=== PATIENT | male | born 1935 | race Caucasian/White ===

== ENCOUNTER 2019-04-17 08:37 | Emergency (ER) | payer OTHER ==
[2019-04-17 08:57] LABS: Bilirubin Negative (Negative); Blood, Urine Moderate (Negative); Clarity Cloudy (Clear); Glucose, Urine (Dipstick) Negative (Negative); Leukocyte Small (Negative); Nitrite Positive (Negative); Protein, Urine (Dipstick) Negative (Neg-Trace); Urobilinogen 0.2 mg/dL (Less than 2)
[2019-04-17 09:11] LABS: Bacteria/HPF 2+ HPF (None Seen)
== END 2019-04-17 10:15 | disposition home or self-care (01) ==
LOC: SCSER 08:37
DX: N30.00 Acute cystitis without hematuria (principal); R33.9 Retention of urine, unspecified; I10 Essential (primary) hypertension; N40.0 Benign prostatic hyperplasia without lower urinary tract symptoms; Z79.82 Long term (current) use of aspirin; Z79.899 Other long term (current) drug therapy
CPT/HCPCS: 51702; 81003; 81015; 87077; 87086; 87186